=== PATIENT | female | born 1995 | race Caucasian/White ===

== ENCOUNTER 2019-04-05 10:36 | Inpatient (IN) | payer BC ==
[~2019-04-05] VITALS: Ht 152.4 cm; Wt 53.0 kg
[2019-04-05] MEDS ORDERED: CITA-106 PO (10:56)
[2019-04-05] MEDS ORDERED: ETHI1TAB6 PO (10:56)
[2019-04-05 11:37] LABS: BASOPHILS % (AUTO) 0.7 % (0.0-2.0); EOSINOPHILS % (AUTO) 2.5 % (1.0-6.0); HEMATOCRIT 39.8 % (36-46); LYMPHOCYTES # (AUTO) 2.5 K/uL (1.0-4.8); MEAN CORPUSCULAR HEMOGLOBIN 28.9 pg (26.0-34.0); MEAN CORPUSCULAR HGB CONC 32.7 G/dL (31.0-37.0); MEAN CORPUSCULAR VOLUME 89 fL (80-100); MONOCYTES # (AUTO) 0.6 K/uL (0.1-1.0); NEUTROPHILS # (AUTO) 4.4 K/uL (1.8-7.7); NEUTROPHILS % (AUTO) 56.8 % (40.0-70.0); PLATELET COUNT (AUTO) 435 K/uL (150-450); RED CELL DISTRIBUTION WIDTH 13.7 % (11.5-14.5)
[2019-04-05 11:50] LABS: ANION GAP 11 mmol/L (8-16); CALCIUM, TOTAL 9.2 mg/dL (8.8-10.5); CARBON DIOXIDE 27 mmol/L (22-29); CHLORIDE 102 mmol/L (98-107); CREATININE 0.54 mg/dL (0.60-1.30); GLOMERULAR FILTR. RATE CALC > 60 mL/min (>60); GLUCOSE,RANDOM 83 mg/dL (70-110); POTASSIUM 4.3 mmol/L (3.5-5.1); SODIUM SERUM 140 mmol/L (136-145); UREA NITROGEN, BLOOD 10 mg/dL (7-18)
[2019-04-05 11:56] LABS: ALANINE AMINOTRANSFERASE 7 U/L (12-78); ALBUMIN 4.2 g/dL (3.4-5.0); ALKALINE PHOSPHATASE 43 U/L (46-116); ASPARTATE AMINOTRANSFERASE 15 U/L (15-37); BILIRUBIN,TOTAL 0.6 mg/dL (0.1-1.0); TOTAL PROTEIN, SERUM 7.9 g/dL (6.4-8.2)
[2019-04-05 12:15] LABS: SALICYLATE < 2.8 mg/dL (2.8-20.0)
[2019-04-05 12:23] LABS: ACETAMINOPHEN < 10 mcg/mL (10-30)
[2019-04-05 13:25] LABS: AMPHET/METH SCREEN,URINE NEGATIVE (NEGATIVE); BARBITURATE SCREEN, URINE NEGATIVE (NEGATIVE); BENZODIAZEPINES SCREEN,URINE POSITIVE (NEGATIVE); CANNABINOID SCREEN,URINE POSITIVE (NEGATIVE); COCAINE SCREEN,URINE NEGATIVE (NEGATIVE); METHADONE SCREEN, URINE NEGATIVE (NEGATIVE); OPIATE SCREEN,URINE NEGATIVE (NEGATIVE); PHENCYCLIDINE SCREEN,URINE NEGATIVE (NEGATIVE)
[2019-04-05] MEDS ORDERED: PROMETHAZINE HCL 25 MG TABLET PO PRN (15:00)
[2019-04-05] MEDS ORDERED: MAGNESIUM HYDROXIDE SUSPENSION 30 ML UDCUP PO PRN (15:00)
[2019-04-05] MEDS ORDERED: MAG HYDROX/AL HYDROX/SIMETH ES 30 ML SUSPENSION UDCUP PO PRN (15:00)
[2019-04-05] MEDS ORDERED: LOPERAMIDE HCL 2 MG CAPSULE PO PRN (15:00)
[2019-04-05] MEDS ORDERED: TUBERCULIN, PURIFIED PROTEIN DERIVATIVE 5 TU/0.1 ML SYRINGE ID ONE (15:00)
[2019-04-05] MEDS ORDERED: HydrOXYzine PAMOATE 50 MG CAPSULE PO PRN (15:00)
[2019-04-05] MEDS ORDERED: ZOLPIDEM TARTRATE 10 MG TABLET PO PRN (15:00)
[2019-04-05] MEDS ORDERED: ACETAMINOPHEN 325 MG TABLET PO PRN (15:00)
[2019-04-05] MEDS ORDERED: GuaiFENesin/D-METHORPHAN [SUGAR-FREE] 200-20MG/10 ML SYRUP UDCUP PO PRN (15:00)
[2019-04-05] MEDS ORDERED: LEVO1TAB12 PO (15:06)
[2019-04-05] MEDS: THIAMINE HCL 100 MG TABLET PO SCH (18:46)
[2019-04-05 19:09] VITALS: BP 106/71
[2019-04-05] MEDS ORDERED: INFLUENZA VIRUS VACCINE QVS 2019-20 (3YR+)/PF 60 MCG/0.5 ML SYRINGE IM ONE (20:15)
[2019-04-05] MEDS: LORazepam 2 MG TABLET PO PRN (22:04)
[2019-04-06 06:39] VITALS: BP 103/69
[2019-04-06 08:20] LABS: CHOL/HDL RATIO 3.2 (3.9-5.7); CHOLESTEROL 164 mg/dL (131-200); FREE T4 (FREE THYROXINE) 1.08 ng/dL (0.76-1.46); HCG,QUANTITATIVE < 1 mIU/mL (0-6); HDL CHOLESTEROL 52 mg/dL (40-60); LDL CHOL (CALC.) 96 mg/dL (0-130); THYROID STIMULATING HORMONE 0.76 uIU/mL (0.36-3.74); TRIGLYCERIDES 82 mg/dL (15-150)
[2019-04-06 08:34] VITALS: BP 100/53
[2019-04-06] MEDS ORDERED: NALTREXONE HCL 50 MG TABLET PO SCH (09:00)
[2019-04-06] MEDS: THIAMINE HCL 100 MG TABLET PO SCH ×2 (09:07→16:41)
[2019-04-06] MEDS: NALTREXONE HCL 50 MG TABLET PO SCH (09:07)
[2019-04-06] MEDS: CITALOPRAM HYDROBROMIDE 20 MG TABLET PO SCH (09:07)
[2019-04-06] MEDS: MULTIVITAMINS WITH MINERALS, THERAPEUTIC TABLET PO SCH (09:07)
[2019-04-06] MEDS: FOLIC ACID 1 MG TABLET PO SCH (09:18)
[2019-04-06] MEDS: LORazepam 2 MG TABLET PO PRN (10:20)
[2019-04-06] MEDS ORDERED: GABAPENTIN 300 MG CAPSULE PO PRN (15:30)
[2019-04-06 16:03] VITALS: BP 111/62
[2019-04-06] MEDS: GABAPENTIN 300 MG CAPSULE PO SCH (16:44)
[2019-04-07 06:18] VITALS: BP 112/65
[2019-04-07 08:04] VITALS: BP 123/60
[2019-04-07] MEDS: QUEtiapine FUMARATE 100 MG TABLET PO PRN ×2 (08:06→12:21)
[2019-04-07] MEDS: NALTREXONE HCL 50 MG TABLET PO SCH (08:07)
[2019-04-07] MEDS: MULTIVITAMINS WITH MINERALS, THERAPEUTIC TABLET PO SCH (08:07)
[2019-04-07] MEDS: THIAMINE HCL 100 MG TABLET PO SCH ×2 (08:07→16:07)
[2019-04-07] MEDS: GABAPENTIN 300 MG CAPSULE PO SCH ×3 (08:07→16:07)
[2019-04-07] MEDS: CITALOPRAM HYDROBROMIDE 20 MG TABLET PO SCH (08:07)
[2019-04-07] MEDS: FOLIC ACID 1 MG TABLET PO SCH (08:07)
[2019-04-07 16:00] VITALS: BP 114/78
[2019-04-07] MEDS ORDERED: CITA-106 PO (17:49)
[2019-04-07] MEDS ORDERED: NALT50TA PO (17:49)
[2019-04-07] MEDS ORDERED: GABA-531 PO (17:49)
[2019-04-08 07:24] VITALS: BP 120/71
[2019-04-08] MEDS: CITALOPRAM HYDROBROMIDE 20 MG TABLET PO SCH (08:01)
[2019-04-08] MEDS: NALTREXONE HCL 50 MG TABLET PO SCH (08:01)
[2019-04-08] MEDS: FOLIC ACID 1 MG TABLET PO SCH (08:01)
[2019-04-08] MEDS: MULTIVITAMINS WITH MINERALS, THERAPEUTIC TABLET PO SCH (08:01)
[2019-04-08] MEDS: THIAMINE HCL 100 MG TABLET PO SCH (08:01)
[2019-04-08 08:36] VITALS: BP 119/77
[2019-04-08] MEDS ORDERED: GABAPENTIN 400 MG CAPSULE PO SCH (09:00)
[2019-04-08] MEDS ORDERED: NALT50TA6 PO (09:47)
[2019-04-08] MEDS ORDERED: GABA-529 PO (09:47)
== END 2019-04-08 11:20 | disposition home or self-care (01) | DRG 885 ==
LOC: EMS 10:38 → B3A 18:27
PROVIDERS: ADMIT Psychiatry & Neurology Psychiatry; ATTEND Psychiatry & Neurology Psychiatry
DX: F31.9 Bipolar disorder, unspecified (principal); R45.851 Suicidal ideations; F12.90 Cannabis use, unspecified, uncomplicated; F42.9 Obsessive-compulsive disorder, unspecified; F43.10 Post-traumatic stress disorder, unspecified; X58.XXXA Exposure to other specified factors, initial encounter; Y93.89 Activity, other specified; Y92.89 Other specified places as the place of occurrence of the external cause; Y99.8 Other external cause status; Z81.8 Family history of other mental and behavioral disorders; Z91.19 Patient's noncompliance with other medical treatment and regimen
CPT/HCPCS: 84439; 84443; 86592; G0480; G0481